=== PATIENT | female | born 1965 | race African-American/Black ===

== ENCOUNTER 2018-08-19 09:19 | Outpatient (RCR) | payer MEDICARE | END 2018-09-17 | LOC: PT 09:19 | PROVIDERS: ATTEND Internal Medicine | DX: I69.854 Hemiplegia and hemiparesis following other cerebrovascular disease affecting left non-dominant side (principal); M25.512 Pain in left shoulder; M25.642 Stiffness of left hand, not elsewhere classified; R53.1 Weakness; R27.9 Unspecified lack of coordination | CPT/HCPCS: 97162; 97165; G8978; G8979 ==